=== PATIENT | male | born 1960 | race Caucasian/White ===

== ENCOUNTER → 2016-07-15 | Outpatient (CLI) | payer BC | END | disposition home or self-care (01) | LOC: PCVCIMAG 15:45 | PROVIDERS: ATTEND Internal Medicine Cardiovascular Disease | DX: I25.10 Atherosclerotic heart disease of native coronary artery without angina pectoris (principal); E78.00 Pure hypercholesterolemia, unspecified; R00.1 Bradycardia, unspecified; J45.909 Unspecified asthma, uncomplicated | CPT/HCPCS: 93325; 93351 ==

== ENCOUNTER → 2018-10-13 | Outpatient (CLI) | payer BC ==
--- NOTE | 2018-10-13 16:29 | PCVCIMAG ---
APPROVED REPORT Study performed: 10/13/2018 15:33:11 Exam: Stress Echocardiogram Indication: Hyperlipidemia, Hypertension, Elevated calcium score Patient Location: Echo lab Stress Nurse: Concetta Mustafa RN Status: routine Ht: 5 ft 9 in HR: 58 bpm BP: 120/70 mmHg Rhythm: NSR Procedure The patient underwent an Exercise Stress Test using the Kumar Protocol. Blood pressure, heart rate, and EKG were monitored. An Echocardiogram was performed by network support technician in four stages in quad fashion. At peak stress, four selected images were obtained and placed side by side with resting images for comparison. Stress Test Details Stress Test: Exercise stress testing was performed using a Kumar protocol. HR Resting HR: 58 bpmMax Heart Rate (APMHR): 164 bpm Max HR Achieved: 130 bpmTarget HR (85% APMHR): 139 bpm % of APMHR: 79 Recovery HR: 78 bpm HR response to stress: Normal HR response to stress BP Resting BP: 120/70 mmHg Max BP: 218/78 mmHg Recovery BP: 132/80 mmHg BP response to stress: Normal blood pressure response to stress. ECG Resting ECG: Sinus Rhythm Stress ECG: Sinus Rhythm ST Change: Non-ischemic Recovery ECG: Sinus Rhythm Clinical Reason for Termination: Maximal effort Stress Symptoms: dizziness Exercise duration: 10 min 03 sec Highest Stage Achieved: Stage 3: 3.4 mph at 14% grade. Exercise capacity: 13.40 METs Overall Exercise Capacity for Age: Average Stress ECG Conclusion Submaximal heart rate. Pre-Stress Echo The resting Echocardiogram showed normal left ventricular contractility with an estimated Ejection Fraction of about 55-60%. Post-Stress Echo The stress Echocardiogram showed normal left ventricular contractility with an estimated Ejection Fraction of about 60-65%. Conclusion Clinical Response: Non-ischemic Exercise Capacity: Average Stress ECG Response: Non-ischemic Stress Echo Images: Non-ischemic Non-diagnostic study due to inability of the patient to achieve 85% of maximal HR. Other Information Study Quality: Adequate <Conclusion> Non-diagnostic study due to inability of the patient to achieve 85% of maximal HR.
== END | disposition home or self-care (01) ==
LOC: PCVCIMAG 15:15
PROVIDERS: ATTEND Internal Medicine Cardiovascular Disease
DX: E78.5 Hyperlipidemia, unspecified (principal); I10 Essential (primary) hypertension; R93.1 Abnormal findings on diagnostic imaging of heart and coronary circulation; I25.10 Atherosclerotic heart disease of native coronary artery without angina pectoris
CPT/HCPCS: 93325; 93351